=== PATIENT | female | born 1960 | race Caucasian/White ===

== ENCOUNTER 2016-10-26 21:57 | Emergency (ER) | payer OTHER ==
[~2016-10-26] VITALS: Ht 154.9 cm; Wt 84.4 kg
[~2016-10-26 21:57] MED LIST: BACTRIM,SEPT1 TABLET PO; DIAZEPAM5 MG PO; HYDROCODON-ACE1 EAC5 PO; NOHOMEMEDS; PHENERGAN25 MG PR; ZANTAC150 MG PO
[2016-10-26 22:03] VITALS: BP 144/93
[2016-10-26] MEDS ORDERED: HALDOL10 MG PO (22:51)
[2016-10-26] MEDS ORDERED: TEGRETOL-XR,CA200 MG PO (22:52)
[2016-10-26] MEDS ORDERED: COGENTIN0.5 MG PO (22:52)
[2016-10-27] MEDS ORDERED: PERCOCET 5/31 TABLET PO (00:19)
== END 2016-10-27 00:41 | disposition home or self-care (01) ==
LOC: EXP 21:57 → EME 21:57 → EXP 10-27 00:41
DX: S22.41XA Multiple fractures of ribs, right side, initial encounter for closed fracture (principal); W18.39XA Other fall on same level, initial encounter; Y92.003 Bedroom of unspecified non-institutional (private) residence as the place of occurrence of the external cause; F17.200 Nicotine dependence, unspecified, uncomplicated
CPT/HCPCS: 71101; 99281; 99283